=== PATIENT | female | born 1960 | race Caucasian/White ===

== ENCOUNTER → 2018-11-17 | Emergency (ER) | payer OTHER ==
[~2018-11-17] VITALS: Ht 162.6 cm; Wt 79.8 kg
[~2018-11-17] MED LIST: CIPRO500 MG; COZAAR50 MG; LEVSIN/SL0.125 MG SL; LOSARTAN-HCTZ1 EAC2; ULTRAM50 MG PO; ZANTAC150 MG PO
== END | disposition home or self-care (01) ==
LOC: ER 19:35
DX: R31.0 Gross hematuria (principal)

== ENCOUNTER 2019-11-16 07:15 | Outpatient (CLI) | payer OTHER | END 2019-11-16 07:31 | disposition home or self-care (01) | LOC: RAD 07:15 → NUCLEAR 12:00 | PROVIDERS: ATTEND Internal Medicine Cardiovascular Disease | DX: M54.5 Low back pain (principal); E03.8 Other specified hypothyroidism; M13.80 Other specified arthritis, unspecified site ==